=== PATIENT | male | born 1945 | race Caucasian/White ===

== ENCOUNTER 2021-04-04 11:37 | Emergency (ER) | payer OTHER ==
[2021-04-04 12:58] LABS: BASOPHIL 0.5 % (0-2); HCT 38.9 % (42.0-52.0); HGB 12.8 g/dl (13.2-18.0); LYMPHOCYTE 14.3 % (15-48); MCH 30.7 pg (25.0-31.0); MCHC 32.9 g/dL (32.0-36.0); MCV 93.3 fL (78.0-100.0); MONOCYTE 5.2 % (0-12); MPV 9.2 fL (6.0-9.5); NEUTROPHIL 77.1 % (41-80); NRBC 0; PLT 306 K/uL (150-400); RBC 4.17 M/uL (4.70-6.00); RDW 12.2 % (11.5-14.0)
[2021-04-04 13:23] LABS: ALBUMIN 2.6 g/dL (3.4-5.0); BILIRUBIN - TOTAL 0.7 mg/dL (0.2-1.0); BUN/CREAT RATIO (CALC) 12.2 RATIO; CREATININE 0.98 mg/dL (0.67-1.17); GLOBULIN (CALCULATION) 4.4 g/dL; POTASSIUM 3.5 mmol/L (3.5-5.1)
== END 2021-04-04 16:00 | disposition home or self-care (01) ==
LOC: FER 11:37
PROVIDERS: Physician Assistant
DX: E11.649 Type 2 diabetes mellitus with hypoglycemia without coma (principal); I10 Essential (primary) hypertension; Z79.4 Long term (current) use of insulin; Z88.2 Allergy status to sulfonamides; Z91.048 Other nonmedicinal substance allergy status
CPT/HCPCS: 36415; 80053; 85025; 99285